=== PATIENT | female | born 1980 | race Caucasian/White ===

== ENCOUNTER 2024-06-09 09:49 | Emergency (ER) | payer OTHER, SELFPAY ==
[2024-06-09 10:00] VITALS: BP 127/73
--- NOTE | 2024-06-09 10:44 | ED.GENMED ---
History of Present Illness
General
Chief Complaint: Oral/Mouth Problem
Source: patient and family
Exam Limitations: none
Time Seen by Provider: 06/09/24 10:37
Nursing documentation reviewed up to this point in time: agreed with
History of Present Illness
History of Present Illness:
Patient is a 41-year-old female who was brought by mom and boyfriend for evaluation. Family feels that patient is ruminating and obsessed over the idea that something is wrong with her gums/teeth and that she has infection. Patient presents very
anxious telling me that she believes something is wrong with her gums. She reports her lips are swollen her gums are infected. She believes this because she was very depressed over recent other physical problem and did not brush her teeth for a
while in May. Family at bedside reports patient has been to 2 dentist and an emergency department on Friday she was seen at an ER in [place] as well as a dentist and on Friday back to a different dentist who also did x-rays. Both
dentist cleared patient and did not feel that patient had any periodontal disease that she feels that she has. She also had x-rays which are negative.
Family reports patient was diagnosed with a rectal fistula in and since then has had a lot of anxiety however this sudden new idea that she has something wrong with her teeth/gums started on Friday 5 days ago.
They report she is not sleeping. reports she is not thinking clearly her decisions and thinking is not normal. She is up all night. She was given Ativan prescription which helps her sleep at night by the ER in [place]. She has no
formal diagnosis of psychiatric illness. Mother reports that she has an appointment with a psychiatric nurse practitioner tomorrow.
Course
Orders/Labs/Results
Orders:
Orders
06/09/24 11:05
IV Insert/Care/Rem.- Treatment PRN
Test Result ONCE
06/09/24 11:09
Complete Blood Count/With Diff Urgent
Comprehensive Metabolic Panel Urgent
HCG, Serum Qualitative Screen Urgent
Abnormal Lab Results
06/09/24
11:09
MCH 31.2 H pg
(27.0-31.0)
Plt Count 405 H 10^3/uL
(130-400)
Absolute Lymphs (auto) 1.1 L 10^3/uL
(1.2-3.4)
Lymphocytes % 19.9 L %
(20.5-51.1)
Monocytes % 10.5 H %
(1.7-9.3)
BUN 6 L mg/dl
(7-17)
Creatinine 0.5 L mg/dL
(0.6-1.0)
Glucose 104 H mg/dl
(70-99)
06/09/24 11:09
06/09/24 11:09
Vital Signs
Initial and Last Documented VS:
Initial Vital Signs
Temp Pulse Resp BP Pulse Ox
98.0 F 104 18 127/73 100
06/09/24 10:00 06/09/24 10:00 06/09/24 10:00 06/09/24 10:00 06/09/24 10:00
Last Documented Vital Signs
Temp Pulse Resp BP Pulse Ox
98.0 F 104 18 127/73 100
06/09/24 10:00 06/09/24 10:00 06/09/24 10:00 06/09/24 10:00 06/09/24 10:00
ED Attending Note
-
Portions of this chart may have been created with voice recognition software.� Occasional wrong word or��sound alike� substitutions may have occurred due to the inherent limitations of voice recognition software.
Discharge Plan
Departure
Referrals:
NONE,* [Family Provider] -
Interventions
Interventions:
*Risk Screen - Suicide Last Done: 06/09/24 10:00
*General Assessment Last Done: 06/09/24 10:00
*Neglect/Abuse Screening Last Done: 06/09/24 10:00
Discharge Date and Time
Print Language: [id number]
[2024-06-09 11:12] VITALS: BMI 20.5
[2024-06-09 11:22] LABS: % Basophils 1.6 % (0-2); % Eosinophils 1.1 % (0-6); % Immature Granulocytes 0.2 % (0-0.5); % Lymphocytes 19.9 % (20.5-51.1); % Monocytes 10.5 % (1.7-9.3); % Neutrophils 66.7 % (42.2-75.2); Absolute Basophils 0.1 10^3/uL (0-0.2); Absolute Eosinophils 0.1 10^3/uL (0-0.7); Absolute Lymphocytes 1.1 10^3/uL (1.2-3.4); Absolute Monocytes 0.6 10^3/uL (0.1-0.6); Absolute Neutrophils 3.8 10^3/uL (1.4-6.5); Hematocrit 41.5 % (37.0-47.0); Hemoglobin 14.4 g/dL (12.0-16.0); Mean Corp Hgb Conc. 34.7 g/dL (33.0-37.0); Mean Corpuscular Hgb 31.2 pg (27.0-31.0); Mean Corpuscular Volume 89.8 fL (81.0-99.0); Mean Platelet Volume 9.8 fL (7.4-10.4); Nucleated Red Blood Cells % 0 %; Platelet Count 405 10^3/uL (130-400); Red Blood Cell Count 4.62 10^6/uL (4.20-5.40); Red Cell Dist. Width 11.9 % (11.5-14.5); White Blood Cell Count 5.7 10^3/uL (4.8-10.8)
[2024-06-09 11:32] LABS: HCG, Serum Qualitative Screen Negative
[2024-06-09 11:37] LABS: ALT (SGPT) 13 U/L (0-35); AST (SGOT) 17 U/L (14-36); Alkaline Phosphatase 39 U/L (38-126); Blood Urea Nitrogen 6 mg/dl (7-17); Calcium 9.8 mg/dl (8.4-10.2); Carbon Dioxide 28 mmol/L (22-30); Chloride 101 mmol/L (98-107); Estimated Creatinine Clearance 118 ml/min; Glucose 104 mg/dl (70-99); Potassium 4.1 mmol/L (3.5-5.1); Sodium 140 mmol/L (135-145); Total Bilirubin 0.9 mg/dl (0.2-1.3); Total Protein 7.6 g/dl (6.3-8.2); eGFR > 60.00
== END 2024-06-09 13:55 ==
LOC: EMR 09:49
PROVIDERS: Nurse Practitioner; EMERGENCY PHYSICIAN Emergency Medicine
DX: F41.9 Anxiety disorder, unspecified (principal); F32.A Depression, unspecified; R68.84 Jaw pain; R11.0 Nausea; R04.0 Epistaxis; K60.40 Rectal fistula, unspecified
CPT/HCPCS: 99283; 80053; 84703; 85025